=== PATIENT | female | born 1980 | race Caucasian/White ===

== ENCOUNTER 2024-02-15 10:04 | Outpatient (REF) | payer SELFPAY ==
[2024-02-15 15:38] LABS: TSH (W/Ref FT4) 2.37 uIU/mL (0.36-3.74)
== END 2024-02-15 10:05 | disposition home or self-care (01) ==
LOC: NCHCN 10:04
PROVIDERS: PCP Physician Assistant; Visit Provider Physician Assistant
DX: Z13.29 Encounter for screening for other suspected endocrine disorder (principal)
CPT/HCPCS: 84443

== ENCOUNTER 2025-05-25 10:02 | Outpatient (REF) | payer MEDICAID, SELFPAY ==
[2025-05-29 12:51] LABS: Helicobacter pylori Ag, Feces Negative (Negative)
== END 2025-05-25 10:03 | disposition home or self-care (01) ==
LOC: NCHCN 10:02
PROVIDERS: PCP Physician Assistant; Visit Provider Nurse Practitioner Family
DX: R10.13 Epigastric pain (principal)
CPT/HCPCS: 87338